=== PATIENT | female | born 1990 | race Caucasian/White ===

== ENCOUNTER 2018-05-25 23:34 | Day surgery (SDC) | payer OTHER ==
[2018-05-25 23:59] VITALS: BP 113/68; TEMP 98.4; BMI 28.1
--- NOTE | 2018-05-26 00:14 | PDOC.LDHP ---
Labor and Delivery H&P Chief complaint: other ("Dehyation") HPI: Patient of Dr Thorpe Location: L&D CC: Here for "dehydration" HPI: 28 yo with headache and states she feels dehydrated. No VB nor contrcations. Good FM. No fevers. States could not tolerate GTT 3hr twice. No diarhhea, had "indigestion". Some nausea last few days. Review of Systems: complete and as per HPI Grav: 1 Para: 0 Abnormal US findings: No Current medications: pre-shad vitamins Previous surgical history: other (gastric sleeve 2013) Allergies/Adverse Reactions: Allergies Allergy/AdvReac Type Severity Reaction Status Date / Time No Known Allergies Allergy Verified 05/25/18 23:55 - Physical Exam Vital signs reviewed and normal: yes (113/68 afebrile) General: NAD Heart: RRR Lungs: CTAB Abdomen: gravid Extremeties: no edema FHT: category 1 (reactive for EGA) - Assessment Vague complaints at 28 weeks...no diarhea reported and some nasusea after the 3 hr attempt recently. No contractions. - Plan Plan: observation in L&D (I have ordered a CMP and urine. I will hydrate with D5LR 1 liter. Offer Zofran andf malox. No sxs of gallbladder dz.)
[2018-05-26] MEDS ORDERED: Ondansetron PF 4 MG/2 ML Vial IVP SCH (00:15)
[2018-05-26] MEDS ORDERED: Mag-Al Plus 1200 MG/1200 MG/120 MG/30 ML UDCUP PO PRN (00:17)
[2018-05-26] MEDS: Dextrose 5%-Lactated Ringers 1,000 ML IV SCH ×2 (00:24→01:37)
[2018-05-26 00:55] LABS: ALT (SGPT) 11 U/L (8-55); AST (SGOT) 9 U/L (5-34); Albumin 3.3 g/dL (3.5-5.0); Alkaline Phosphatase 59 U/L (40-150); Anion Gap 12 mmol/L (10-20); BUN (Urea Nitrogen) 10 mg/dL (7.0-18.7); Bilirubin, Total 0.4 mg/dL (0.2-1.2); Calc. Creatinine Clearance 182 mL/min (70-130); Calcium 8.8 mg/dL (7.8-10.44); Carbon Dioxide 22 mmol/L (22-29); Chloride 109 mmol/L (98-107); Estimated GFR-MDRD Greater than 90; Globulin 3.5 g/dL (2.4-3.5); Glucose 82 mg/dL (70-105); Potassium 3.8 mmol/L (3.5-5.1); Protein, Total 6.8 g/dL (6.0-8.3); Sodium 139 mmol/L (136-145)
--- NOTE | 2018-05-26 01:42 | PDOC.EVN ---
Event Note - Event Note Event Note: CMP normal
[2018-05-26 04:02] LABS: Bilirubin Negative (Negative); Blood, Urine Negative (Negative); Clarity CLEAR (Clear); Glucose, Urine (Dipstick) >=1000 mg/dL (Negative); Leukocyte Moderate (Negative); Nitrite Negative (Negative); Protein, Urine (Dipstick) Negative (Neg-Trace); Specific Gravity, Urine 1.022 (1.002-1.036)
[2018-05-26 04:05] LABS: Bacteria/HPF None Seen HPF (None Seen); Hyaline Casts/LPF 4-6 HYALINE CAST LPF (0-3 Hyaline); Pathc Cast-AUWi Flag 1.59 (0-2.49); RBC/HPF 0-3 HPF (0-3); WBC/HPF 21-50 HPF (0-3)
--- NOTE | 2018-05-26 07:03 | PDOC.EVN ---
Event Note - Event Note Event Note: UA with neg ketones, the glucose in urine likely secondary to D5 administration IV. Contaminated sample due to sq cells present...no sxs of UTI. Nit negative. Cleared for discharge
== END 2018-05-26 05:00 | disposition home or self-care (01) ==
LOC: L&D/OP 23:34
PROVIDERS: ATTEND Obstetrics & Gynecology
DX: O99.283 Endocrine, nutritional and metabolic diseases complicating pregnancy, third trimester (principal); E86.0 Dehydration; O99.843 Bariatric surgery status complicating pregnancy, third trimester; Z3A.28 28 weeks gestation of pregnancy; Z79.899 Other long term (current) drug therapy
CPT/HCPCS: 80053; 81003; 81015; 96360; 96361; 99283

== ENCOUNTER 2018-06-25 11:59 | Day surgery (SDC) | payer OTHER ==
[2018-06-25 13:25] LABS: #Basophils 0.1 thou/uL (0.0-0.2); #Eosinphils 0.9 thou/uL (0.0-0.7); #Lymphocytes 1.2 thou/uL (1.20-3.40); #Monocytes 0.5 thou/uL (0.11-0.59); #Neutrophils 5.1 thou/uL (1.40-6.50); %Basophils 0.9 % (0.0-1.0); %Eosinophils 11.3 % (0.0-10.0); %Lymphocytes 15.2 % (21.0-51.0); %Monocytes 6.5 % (0.0-10.0); %Neutrophils 66.2 % (42.0-75.0); Hemoglobin 10.5 g/dL (12.0-16.0); Mean Corpuscular HGB CONC 33.4 g/dL (32.0-36.0); Mean Corpuscular Hemoglobin 30.9 pg (27.0-31.0); Mean Corpuscular Volume 92.7 fL (78.0-98.0); Mean Platelet Volume 10.4 fL (7.4-10.4); Platelet Count 167 thou/uL (130-400); RBC Distribution Width 11.4 % (11.5-14.5); White Blood Cell (WBC) Count 7.7 thou/uL (4.8-10.8)
[2018-06-25 13:27] VITALS: BMI 29.3
[2018-06-25 13:34] LABS: Amnisure Test No Membranes Rupture (No Rupture)
[2018-06-25 13:35] LABS: Amnisure Internal Control QC ACCEPTABLE (ACCEPTABLE)
[2018-06-25] MEDS ORDERED: Lactated Ringer's 300 ML IVPB SCH (16:40)
[2018-06-25] MEDS ORDERED: Lactated Ringer's 1,000 ML IV SCH (16:45)
== END 2018-06-25 16:37 | disposition home or self-care (01) ==
LOC: L&D/OP 11:59
PROVIDERS: ATTEND Obstetrics & Gynecology
DX: O99.89 Other specified diseases and conditions complicating pregnancy, childbirth and the puerperium (principal); N89.8 Other specified noninflammatory disorders of vagina; Z79.2 Long term (current) use of antibiotics; Z79.899 Other long term (current) drug therapy
CPT/HCPCS: 84112; 85025; 86644; 86696; 86698; 86762; 86777; 87081; 87480; 87510; 87660; 96360; 96361; 99284

== ENCOUNTER 2018-07-09 13:01 | Inpatient (IN) | payer OTHER ==
[2018-07-09] MEDS ORDERED: Ondansetron PF 4 MG/2 ML Vial ONE ×2 (13:16→14:50)
[2018-07-09] MEDS ORDERED: Ketorolac Tromethamine 30 MG/ML VIAL ONE ×2 (13:16→14:50)
[2018-07-09] MEDS ORDERED: Dexamethasone 20 MG/5 ML VIAL ONE (13:16)
[2018-07-09] MEDS ORDERED: PHENYLEPHRINE-NS 100 MCG/ML 10 ML SYRINGE ONE ×2 (13:16→14:50)
[2018-07-09 13:29] VITALS: BMI 29.3
[2018-07-09] MEDS: Lactated Ringer's 1,000 ML IV SCH ×2 (14:15→21:22)
[2018-07-09] MEDS ORDERED: Ondansetron PF 4 MG/2 ML Vial IVP PRN ×3 (14:21→15:03)
[2018-07-09] MEDS ORDERED: Butorphanol Tartrate 1 MG/ML VIAL SLOW IVP PRN (14:21)
[2018-07-09] MEDS ORDERED: Meperidine HCl/PF 25 MG/ML VIAL IM/IV PRN (14:21)
[2018-07-09] MEDS ORDERED: Promethazine HCl 25 MG/ML VIAL IM PRN ×3 (14:21→15:03)
[2018-07-09] MEDS ORDERED: CEFAZOLIN/Water 2 GM/20 ML SYRINGE SLOW IVP SCH (14:30)
--- NOTE | 2018-07-09 14:33 | PDOC.LDHP ---
Labor and Delivery H&P Chief complaint: other (sent from [facility] w BPP 4/8, decelerations on NST) HPI: Pt is a 28yo G1 @ 34.5 weeks w oligohydramnios, asymmetric IUGR, breech, maternal bicornuate uterus who was seen by [facility] today and sent to L and D w BPP 4 /8 and RADHA 6. Good variability noted when patient was put on NST but with one subtle 3 min decel noted followed by a 5 minute decel noted as well. Current gestational age (weeks): 34 Due date: 08/15/18 Dating criteria: first trimester ultrasound (redated at 12 weeks) Grav: 1 Para: 0 Current complications: IUGR, oligohydramnios, breech Abnormal US findings: Yes (RADHA 6cm, 7% growth and head <1%tile) Past Medical History: none Current medications: pre-shad vitamins Previous surgical history: other (gastric sleeve) Allergies/Adverse Reactions: Allergies Allergy/AdvReac Type Severity Reaction Status Date / Time No Known Allergies Allergy Verified 05/25/18 23:55 Social history: none - Physical Exam Vital signs reviewed and normal: yes General: resting Heart: RRR Lungs: CTAB Abdomen: gravid Extremeties: no edema FHT: category 2 - OB Labs Blood type: A RH: positive Antibody Screen: negative HIV: negative RPR: negative HEPSAg: negative 1 hour GCT: positive 3 hour GTT: neg Rubella: immune Additional Labs: NIPT and AFP neg, HSV 1/2 IgM pos, HSV1 IgG positive, HSV2 IgG negative, otherwise TORCH neg - Assessment L&D Assessment: scheduled primary section - Plan Plan: admit to L&D, to OR for section, informed consent obtained, anesthesia consult for pain management -: A/P: 28yo G1 @ 34.5 weeks w non reassuring status in the presence of asymmetric IUGR, oligohydramnios, BPP 4/10, and breech presentation. Had one dose of steroids 14 days ago when she was suspicious in the office for ROM but was confirmed intact. An additional dose of steriod was given yesterday with plan to repeat today, however was directed from [facility] to come to L and D after BPP was 4/10. Recommendation reviewed w [facility] for delivery now. Patient and NICU aware.
[2018-07-09] MEDS ORDERED: Bicitra 30 ML UDCUP ONE (14:35)
[2018-07-09] MEDS ORDERED: Bicitra 30 ML UDCUP PO SCH (14:45)
[2018-07-09] MEDS ORDERED: CEFAZOLIN 2 GM in Premix Bag 1 BAG IVPB SCH (14:45)
[2018-07-09] MEDS ORDERED: MORPHINE 5 MG/10 ML PF VIAL ONE (14:49)
[2018-07-09] MEDS ORDERED: Fentanyl 100 MCG/2 ML VIAL ONE (14:49)
[2018-07-09] MEDS ORDERED: Oxytocin 10 UNITS/ML VIAL ONE ×3 (14:50→15:27)
[2018-07-09] MEDS ORDERED: Promethazine HCl 25 MG SUPP PR PRN (14:52)
[2018-07-09] MEDS ORDERED: Ondansetron HCl/PF 4 MG/2 ML Vial IVP PRN (14:52)
[2018-07-09] MEDS ORDERED: Naloxone HCl 0.4 mg/ml Vial IV PRN (14:52)
[2018-07-09] MEDS ORDERED: Eucerin (Mineral Oil/Petrolatum,White) 30 gm Jar TOP PRN (14:52)
[2018-07-09] MEDS ORDERED: HYDROmorphone 2 MG/ML VIAL SLOW IVP PRN (14:52)
[2018-07-09] MEDS ORDERED: L&D-Morphine 4 MG/ML VIAL SLOW IVP PRN (14:52)
[2018-07-09] MEDS ORDERED: Naloxone HCl 0.4 mg/ml Vial IVP PRN ×2 (14:52)
[2018-07-09] MEDS ORDERED: Meperidine HCl/PF 25 MG/ML VIAL SLOW IVP PRN (14:52)
[2018-07-09] MEDS ORDERED: diphenhydrAMINE 50 MG/ML VIAL IVP PRN (14:52)
[2018-07-09 14:55] LABS: Hemoglobin 10.8 g/dL (12.0-16.0); Mean Corpuscular HGB CONC 33.4 g/dL (32.0-36.0); Mean Corpuscular Hemoglobin 30.1 pg (27.0-31.0); Mean Corpuscular Volume 90.4 fL (78.0-98.0); Mean Platelet Volume 10.4 fL (7.4-10.4); Platelet Count 197 thou/uL (130-400); RBC Distribution Width 11.3 % (11.5-14.5); Red Blood Cell (RBC) Count 3.57 mill/uL (4.20-5.40); White Blood Cell (WBC) Count 10.1 thou/uL (4.8-10.8)
[2018-07-09] MEDS ORDERED: Communication Order-Pharmacy FS SCH (15:00)
[2018-07-09] MEDS ORDERED: Ketorolac Tromethamine 30 MG/ML VIAL IVP SCH ×2 (15:00→23:30)
[2018-07-09] MEDS ORDERED: diphenhydrAMINE 25 MG CAP PO PRN (15:03)
[2018-07-09] MEDS ORDERED: Zolpidem Tartrate 5 MG TAB PO PRN (15:03)
[2018-07-09] MEDS ORDERED: Bisacodyl 10 MG SUPP PR PRN (15:03)
[2018-07-09] MEDS ORDERED: Lanolin Ointment 7 GM TUBE TOP PRN (15:03)
[2018-07-09] MEDS ORDERED: NS / Oxytocin 40 units/1000ml 1,000 ML IV SCH (15:15)
[2018-07-09 15:35] LABS: HBSAg Index 0.31 S/CO (0-0.99); Hep B Surf Ag Non-Reactive S/CO (NonReactive)
[2018-07-09 15:36] LABS: Syphilis Antibody Nonreactive (Nonreactive); Syphilis Antibody Index 0.06 S/CO (<1.00 Non-Reactive)
--- NOTE | 2018-07-09 16:00 | PDOC.OPDEL ---
OB Operative/Delivery Note Delivery Dr/Surgeon: Maurilio Assist: Katie Pre-Delivery Diagnosis: breech, medically indicated induction, other ( oligohydramnios, breech, BPP 4/10, IUGR) Weeks gestation: 34 Anesthesia: spinal - Findings A Sex: female - Additional Findings/Plan Placenta delivered: spontaneous findings: low transverse hysterotomy without extension, normal tubes, normal ovaries, other (Bicornuate/septate uterus w head and body in left horn and LE in right more rudimentary horn.) Estimated blood loss: 800ml Post delivery plan: routine recovery
[2018-07-09] MEDS ORDERED: Acetaminophen 1,000 MG in Premix Bag 1 BAG IVPB PRN (22:00)
[2018-07-09] MEDS: Ketorolac Tromethamine 30 MG/ML VIAL IVP PRN (22:21)
--- NOTE | 2018-07-09 23:17 | OP ---
DATE OF PROCEDURE: 07/09/2018 PROCEDURE PERFORMED: Primary low transverse section. CLIENT SERVICES ADMINISTRATOR: Corinne Wilson PA-C ANESTHESIA: Spinal per Dr. Lamb. COMPLICATIONS: None. ESTIMATED BLOOD LOSS: 800 mL. PREOPERATIVE DIAGNOSES: 1. 34 weeks and 5 days gestation. 2. Bicornuate/septate uterus. 3. Breech presentation. 4. Oligohydramnios. 5. Asymmetric intrauterine growth restriction. 6. Non-reassuring antepartum surveillance with a BPP 4/10 and recurrent decelerations on nonstress test. POSTOPERATIVE DIAGNOSIS: Status post primary low transverse section. FINDINGS: 1. Low transverse hysterotomy without extension. 2. Bicornuate uterus with two distinct torn and a thick intrauterine septum. 3. On palpation prior to delivery, the infant's head and upper body were in the left uterine horn and the 's lower extremities were in the rudimentary right uterine horn. 4. Normal-appearing fallopian tubes and ovaries bilaterally. 5. Uterus firm after delivery of placenta. 6. Small growth restricted appearing with vigorous cry noted at . Apgars and weight pending at the time of this dictation. Asymmetric head molding noted. DESCRIPTION OF PROCEDURE: The patient was taken back to the OR with IV fluids running. When she was in the OR, spinal anesthesia was obtained. The patient was then placed in dorsal supine position with a left lateral tilt. Cooley catheter was placed using sterile technique. SCDs were placed on the lower extremities. A 2 g of Ancef were infused through the patient's IV. The abdomen was prepped and draped in normal fashion for section. Surgeons were gowned and gloved and the anesthesia was tested and found to be adequate. A Pfannenstiel skin incision was made with a scalpel. Skin incision carried out to the subcutaneous tissue to the fascia. Once the fascia was reached, it was incised in the midline and extended superolaterally using curved Gordon scissors. Marine clamps were placed at the superior border of the fascia and sharply and bluntly dissected off the rectus abdominis muscle. This was repeated at the inferior border of the fascia down toward the pubic symphysis. Rectus muscles were in the midline bluntly. The peritoneum was bluntly entered and stretched laterally. An Farrukh O retractor was placed into the peritoneal cavity for retraction, visualization, and protection of the wound. The lower uterine segment was well developed and the breech was palpated at the lower uterine segment. The head was palpated in the left uterine horn in the lower extremities to the much smaller right uterine horn. A low transverse hysterotomy was made with a scalpel after bladder flap was created. The hysterotomy was bluntly stretched using the Jurado maneuver. Clear fluid was noted upon entry and the infant's buttock and lower extremities were palpable through the hysterotomy. With gentle fundal pressure, ASIS were grasped and brought down through the hysterotomy. The leg spontaneously delivered. With gentle rotation, the left and right upper extremities and the head spontaneously delivered through the hysterotomy. The infant was noted to have immediate cry. She was dried. Her nose and mouth were suctioned. The cord was doubly clamped and cut. The was handed off to the NICU who was present for delivery. Cord blood was collected. The placenta was delivered. Uterus was exteriorized and massaged to firm, and cleared of clot and debris. A thick intrauterine septum was noted dividing the right and left uterine horns. Both uterine horns were noted to be firm. The hysterotomy was closed in a running locked fashion using Monocryl suture. A second imbricating layer was used to close the hysterotomy in 2 layers. After the hysterotomy was closed, it was irrigated as well as the paracolic gutters. The irrigation fluid was suctioned dry. The hysterotomy was inspected again and noted to be hemostatic. Counts were correct. The Farrukh retractor was removed from the abdominal cavity. The muscle belly and fascia were inspected with no bleeding noted. The fascia was then reapproximated from corner to corner and tied separately in the midline with PDS suture. Subcutaneous tissue was then irrigated and dried. Any small areas of bleeding were controlled with Bovie cauterization. The subcutaneous tissue was reapproximated with a series of interrupted plain gut suture. Skin was closed with 4-0 Monocryl and dressed with Dermabond dressing. The patient was then clean, dry, and taken to the recovery room in good condition. Job ID: [id number]
[2018-07-09] MEDS: Docusate Calcium (SURFAK) 240 MG CAP PO SCH (23:22)
[2018-07-09] MEDS: Ferrous Sulfate 325 MG TAB PO SCH (23:22)
[2018-07-10] MEDS ORDERED: Meperidine HCl/PF 25 MG/ML VIAL IM/IV PRN (03:00)
[2018-07-10] MEDS: Ketorolac Tromethamine 30 MG/ML VIAL IVP PRN (06:25)
[2018-07-10 07:01] LABS: Hemoglobin 8.8 g/dL (12.0-16.0); Mean Corpuscular Hemoglobin 30.5 pg (27.0-31.0); Mean Corpuscular Volume 92.4 fL (78.0-98.0); Mean Platelet Volume 10.7 fL (7.4-10.4); Platelet Count 155 thou/uL (130-400); RBC Distribution Width 11.4 % (11.5-14.5); Red Blood Cell (RBC) Count 2.88 mill/uL (4.20-5.40); White Blood Cell (WBC) Count 10.5 thou/uL (4.8-10.8)
[2018-07-10] MEDS: Lactated Ringer's 1,000 ML IV SCH ×2 (07:40→14:17)
[2018-07-10] MEDS: Ferrous Sulfate 325 MG TAB PO SCH ×2 (08:51→21:53)
[2018-07-10] MEDS: Prenatal Vitamin 1 TAB PO SCH (08:51)
[2018-07-10] MEDS: Docusate Calcium (SURFAK) 240 MG CAP PO SCH ×2 (08:51→21:53)
--- NOTE | 2018-07-10 08:52 | PDOC.PP ---
Post Progress Note Post Day #: 1 Subjective: doing well, just returned from visiting baby in NICU, pain controlled, javier diet PO intake tolerated: yes Flatus: yes Ambulation: yes Vital Signs (12 hours) Temp Pulse Resp BP Pulse Ox 07/10/18 08:20 98.1 F 64 20 109/70 98 07/10/18 03:45 97.7 F 74 18 102/63 97 07/10/18 00:25 97.8 F 74 18 108/68 99 07/09/18 22:18 98.4 F 75 18 116/72 98 07/09/18 21:00 97.8 F 78 18 120/79 99 Weight Weight 193 lb - Physical Examination General: NAD Respiratory: non-labored breathing Abdominal: no distention Skin: CS incision dry & intact, no rash Neurological: no gross focal deficits Psychiatric: A&Ox3, normal affect Result Diagrams: 07/10/18 06:36 Additional Labs: Post Labs Blood Type A POSITIVE 07/09/18 14:29 Hep Bs Antigen Non-Reactive S/CO (NonReactive) 07/09/18 14:29 - Assessment/Plan POD1 sp 1CS for breech/oligo/IUGR/nonreassuring antepartum surveillance. Meeting post op goals. Continue PP care.
[2018-07-10] MEDS ORDERED: Adacel (T-DAP) 0.5 ML SYRINGE IM ONE (09:00)
[2018-07-10] MEDS: Ibuprofen 800 MG TAB PO SCH ×2 (13:34→21:53)
[2018-07-10] MEDS: HYDROcodone/Acetaminophen 5/325 mg Tablet PO PRN ×2 (18:08→22:27)
[2018-07-11] MEDS: Lactated Ringer's 1,000 ML IV SCH ×3 (00:05→08:19)
[2018-07-11] MEDS: HYDROcodone/Acetaminophen 5/325 mg Tablet PO PRN ×5 (04:05→20:46)
[2018-07-11] MEDS: Ibuprofen 800 MG TAB PO SCH ×3 (06:01→20:47)
[2018-07-11] MEDS: Docusate Calcium (SURFAK) 240 MG CAP PO SCH ×2 (08:16→20:47)
[2018-07-11] MEDS: Simethicone Chewable 80 MG TAB PO PRN ×2 (08:16→16:51)
[2018-07-11] MEDS: Prenatal Vitamin 1 TAB PO SCH (08:16)
[2018-07-11] MEDS: Ferrous Sulfate 325 MG TAB PO SCH ×2 (08:16→20:47)
[2018-07-11] MEDS ORDERED: Calcium Carbonate 500 MG ChewTAB PO PRN ×2 (09:49)
[2018-07-11] MEDS: guaiFENesin 200 MG TAB PO PRN ×2 (11:56→17:56)
--- NOTE | 2018-07-11 12:35 | PDOC.PP ---
Post Progress Note Post Day #: 2 Subjective: Doing well, min discomfort, only concerns are GERD and slight cough, tolerating regular diet and ambulating well. PO intake tolerated: yes Flatus: yes Ambulation: yes Vital Signs (12 hours) Temp Pulse Resp BP Pulse Ox 07/11/18 11:42 98.1 F 95 20 113/63 07/11/18 08:04 98.1 F 78 20 111/67 99 07/11/18 04:05 97.6 F 73 18 105/64 Weight Weight 193 lb - Physical Examination General: NAD Respiratory: non-labored breathing Abdominal: no distention Fundus firm & at: below umb Skin: CS incision dry & intact, no rash Neurological: no gross focal deficits Psychiatric: A&Ox3, normal affect Result Diagrams: 07/10/18 06:36 Additional Labs: Post Labs Blood Type A POSITIVE 07/09/18 14:29 Hep Bs Antigen Non-Reactive S/CO (NonReactive) 07/09/18 14:29 (1) delivery delivered Code(s): O82 - ENCOUNTER FOR DELIVERY WITHOUT INDICATION Status: Acute (2) Oligohydramnios delivered Code(s): O41.00X0 - OLIGOHYDRAMNIOS, UNSP TRIMESTER, NOT APPLICABLE OR UNSP Status: Acute (3) Breech presentation Code(s): O32.1XX0 - MATERNAL CARE FOR BREECH PRESENTATION, UNSP Status: Acute (4) Non-reassuring status, delivered, current hospitalization Code(s): O75.89 - OTHER SPECIFIED COMPLICATIONS OF LABOR AND DELIVERY Status: Acute (5) IUGR (intrauterine growth restriction) Status: Acute (6) Bicornuate uterus Code(s): Q51.3 - BICORNATE UTERUS Status: Acute - Assessment/Plan POD 2 sp 1CS for nonreassuring status @ 34.5 weeks in breech presentation with known uterine anomaly, IUGR and oligohydramnios. Doing well, continue PP care.
--- NOTE | 2018-07-12 00:33 | PDOC.PP ---
Post Progress Note Post Day #: POD#3 Subjective: in NICU. No c/o. PO intake tolerated: yes Flatus: yes Ambulation: yes Vital Signs (12 hours) Temp Pulse Resp BP Pulse Ox 07/11/18 20:00 99 07/11/18 16:54 98.4 F 99 18 118/65 Weight Weight 87.543 kg - Physical Examination General: NAD Neurological: no gross focal deficits Psychiatric: normal affect Result Diagrams: 07/10/18 06:36 Additional Labs: Post Labs Blood Type A POSITIVE 07/09/18 14:29 Hep Bs Antigen Non-Reactive S/CO (NonReactive) 07/09/18 14:29 - Assessment/Plan Doing well. Routine care. DC home in AM per Dr. Thorpe.
[2018-07-12] MEDS: HYDROcodone/Acetaminophen 5/325 mg Tablet PO PRN ×5 (01:39→20:26)
[2018-07-12] MEDS: Lactated Ringer's 1,000 ML IV SCH ×3 (01:41→16:53)
[2018-07-12] MEDS: Ibuprofen 800 MG TAB PO SCH ×3 (04:24→20:27)
[2018-07-12] MEDS: guaiFENesin 200 MG TAB PO PRN (04:24)
[2018-07-12] MEDS: Prenatal Vitamin 1 TAB PO SCH (09:09)
[2018-07-12] MEDS: Docusate Calcium (SURFAK) 240 MG CAP PO SCH ×2 (09:09→20:26)
[2018-07-12] MEDS: Ferrous Sulfate 325 MG TAB PO SCH ×2 (09:09→22:21)
--- NOTE | 2018-07-12 10:20 | PDOC.EVN ---
Event Note - Event Note Event Note: Patient with SANTANA, cough, 100 degree temp overnight. Respiratory panel sent and pending. Rapid flu positive for Flu A.
[2018-07-12] MEDS ORDERED: Oseltamivir 75 MG CAP PO SCH (10:30)
[2018-07-12] MEDS: Dextromethorphan Polistirex 30 MG/5 ML (89 ML BOTTLE) PO SCH ×2 (11:59→17:37)
[2018-07-12] MEDS: Oseltamivir 75 MG CAP PO SCH ×3 (20:26→22:23)
--- NOTE | 2018-07-12 20:43 | PDOC.EVN ---
Event Note - Event Note Event Note: Pt Influenza A positive. Pt has had some episodes of tachycardia earlier in the afternoon in the 120's. Pt has been drinking PO fluids. Pt pulse now 99. Advised to continue to drink fluids as much as possible. Pt reports still feeling ill. Advised to rest overnight. Pt reports dextromorphan helping with cough. Will continue with current medication regimen.
[2018-07-13] MEDS: Dextromethorphan Polistirex 30 MG/5 ML (89 ML BOTTLE) PO SCH ×5 (02:10→22:38)
[2018-07-13] MEDS: HYDROcodone/Acetaminophen 5/325 mg Tablet PO PRN ×5 (02:14→22:38)
[2018-07-13] MEDS: Ibuprofen 800 MG TAB PO SCH ×3 (06:33→22:39)
[2018-07-13] MEDS: Lactated Ringer's 1,000 ML IV SCH ×2 (06:46→14:26)
--- NOTE | 2018-07-13 07:25 | PDOC.PP ---
Post Progress Note Post Day #: 4 Subjective: 28yo F who delivered @ 34.5 weeks via 1CS due to oligo, NRFHT, and breech presentation. Pt recently dx with Flu A yesterday by swab and respiratory panel. Pt reports feeling genalized body aches this morning. Reports getting SOB when walking form the NICU. Pt reports having a hard time getting up and moving. Pt reports fever and chills. PO intake tolerated: yes (Drinking small sips fluids. Has hard time drinking large amounts) Flatus: yes Ambulation: yes Vital Signs (12 hours) Pulse Ox 07/12/18 20:00 97 Weight Weight 87.543 kg Pulse 110 and o2 94% when I check bedside at 7:00 - Physical Examination Deviation from normal: Pt ill appearing, Appears tired. Cardiovascular: no m/r/g, RRR Deviation from normal: Some upper airway rales noted on auscultation bilaterally Abdominal: + bowel sounds, lochia (Reports lochia as light), no distention, appropriately TTP Fundus firm & at: below umbilicus Extremities: negative homans (B) Skin: CS incision dry & intact, no rash Deviation from normal: No sign redness or drainage Neurological: no gross focal deficits Psychiatric: A&Ox3, normal affect Result Diagrams: 07/10/18 06:36 Additional Labs: Post Labs Blood Type A POSITIVE 07/09/18 14:29 Hep Bs Antigen Non-Reactive S/CO (NonReactive) 07/09/18 14:29 Flu Swab: Flu A positive. Respitory Panel Influenza A H1 + (1) Influenza A (H1N1) Code(s): J10.1 - FLU DUE TO OTH IDENT INFLUENZA VIRUS W OTH RESP MANIFEST Status: Acute (2) Breech presentation Code(s): O32.1XX0 - MATERNAL CARE FOR BREECH PRESENTATION, UNSP Status: Acute (3) delivery delivered Code(s): O82 - ENCOUNTER FOR DELIVERY WITHOUT INDICATION Status: Acute (4) IUGR (intrauterine growth restriction) Status: Acute (5) Oligohydramnios delivered Code(s): O41.00X0 - OLIGOHYDRAMNIOS, UNSP TRIMESTER, NOT APPLICABLE OR UNSP Status: Acute - Assessment/Plan POD 4 sp 1CS for nonreassuring status @ 34.5 weeks in breech presentation with known uterine anomaly, IUGR and oligohydramnios. Influenza A + on swab and Resp Panel Pt started getting fever and cough yesterday morning. -Started on Tamiflu 75mg BID. -Guanefesin and Dextromorphan for cough. -Pt feeling ill. Pt not able to drink lots of fluids due to past gastric surgery. Pulse elevated some yesterday and again this morning. Will give LR bolus at this time. -Will keep pt one more day for supportive care as she is having difficulty getting up and moving around. POD 4 Primary -Pain controlled with medications at time. -Pain being made worse due to above illness. continue supportive care. -will continue to monitor for another day. -Incision healing well at this time.
[2018-07-13] MEDS ORDERED: Lactated Ringer's 1,000 ML IV SCH (07:30)
[2018-07-13] MEDS: Prenatal Vitamin 1 TAB PO SCH (07:55)
[2018-07-13] MEDS: Docusate Calcium (SURFAK) 240 MG CAP PO SCH ×2 (07:55→22:39)
[2018-07-13] MEDS: Oseltamivir 75 MG CAP PO SCH ×2 (07:56→22:40)
[2018-07-13] MEDS: Ferrous Sulfate 325 MG TAB PO SCH ×2 (07:56→22:39)
[2018-07-13] MEDS: guaiFENesin 200 MG TAB PO PRN (07:57)
--- NOTE | 2018-07-13 10:41 | PDOC.EVN ---
Event Note - Event Note Event Note: Bed Check: Vitals reviewed Stable tamiflu day 2 In Shower, awaiting IVF bolus Also HX gastric Sleeve
--- NOTE | 2018-07-13 23:04 | PDOC.EVN ---
Event Note - Event Note Event Note: Temp check: afebrile
[2018-07-14] MEDS: HYDROcodone/Acetaminophen 5/325 mg Tablet PO PRN ×3 (05:58→18:51)
[2018-07-14] MEDS: Ibuprofen 800 MG TAB PO SCH ×3 (05:59→20:52)
[2018-07-14] MEDS: Lactated Ringer's 1,000 ML IV SCH ×2 (07:23→14:10)
[2018-07-14] MEDS: Dextromethorphan Polistirex 30 MG/5 ML (89 ML BOTTLE) PO SCH ×5 (07:25→23:58)
--- NOTE | 2018-07-14 08:24 | PDOC.PP ---
Post Progress Note Post Day #: 5 Subjective: doing well, coughing but not fever or chills, min lochia, pumping PO intake tolerated: yes Flatus: yes Ambulation: yes Vital Signs (12 hours) Temp Pulse Resp BP Pulse Ox 07/13/18 21:00 98.3 F 85 18 107/63 97 Weight Weight 193 lb - Physical Examination General: NAD Respiratory: non-labored breathing Abdominal: no distention Skin: CS incision dry & intact Psychiatric: A&Ox3, normal affect Result Diagrams: 07/10/18 06:36 Additional Labs: Post Labs Blood Type A POSITIVE 07/09/18 14:29 Hep Bs Antigen Non-Reactive S/CO (NonReactive) 07/09/18 14:29 (1) delivery delivered Code(s): O82 - ENCOUNTER FOR DELIVERY WITHOUT INDICATION Status: Acute (2) Oligohydramnios delivered Code(s): O41.00X0 - OLIGOHYDRAMNIOS, UNSP TRIMESTER, NOT APPLICABLE OR UNSP Status: Acute (3) Breech presentation Code(s): O32.1XX0 - MATERNAL CARE FOR BREECH PRESENTATION, UNSP Status: Acute (4) Non-reassuring status, delivered, current hospitalization Code(s): O75.89 - OTHER SPECIFIED COMPLICATIONS OF LABOR AND DELIVERY Status: Acute (5) IUGR (intrauterine growth restriction) Status: Acute (6) Bicornuate uterus Code(s): Q51.3 - BICORNATE UTERUS Status: Acute (7) Influenza A (H1N1) Code(s): J10.1 - FLU DUE TO OTH IDENT INFLUENZA VIRUS W OTH RESP MANIFEST Status: Acute - Assessment/Plan A/P: POD 5, prolonged care PP due to influenza + on POD3, on tamiflu. Possible DC vs B and B.
[2018-07-14] MEDS: Ferrous Sulfate 325 MG TAB PO SCH ×2 (08:37→20:52)
[2018-07-14] MEDS: Prenatal Vitamin 1 TAB PO SCH (08:37)
[2018-07-14] MEDS: Oseltamivir 75 MG CAP PO SCH ×2 (08:37→20:53)
[2018-07-14] MEDS: Docusate Calcium (SURFAK) 240 MG CAP PO SCH ×2 (08:37→20:53)
[2018-07-14] MEDS: guaiFENesin 200 MG TAB PO PRN (19:04)
[2018-07-15] MEDS: Lactated Ringer's 1,000 ML IV SCH (00:27)
[2018-07-15] MEDS: Dextromethorphan Polistirex 30 MG/5 ML (89 ML BOTTLE) PO SCH ×2 (05:09→12:42)
[2018-07-15] MEDS: HYDROcodone/Acetaminophen 5/325 mg Tablet PO PRN ×3 (05:09→16:34)
[2018-07-15] MEDS: Ibuprofen 800 MG TAB PO SCH ×2 (05:09→13:48)
[2018-07-15 09:00] VITALS: BP 109/61; TEMP 98.1
[2018-07-15] MEDS: Oseltamivir 75 MG CAP PO SCH (09:03)
[2018-07-15] MEDS: Ferrous Sulfate 325 MG TAB PO SCH (09:03)
[2018-07-15] MEDS: Prenatal Vitamin 1 TAB PO SCH (09:03)
[2018-07-15] MEDS: Docusate Calcium (SURFAK) 240 MG CAP PO SCH (09:03)
--- NOTE | 2018-07-15 15:33 | PDOC.PP ---
Post Progress Note Post Day #: 6 Subjective: doing well, min cough, no fever or chills, no SOB PO intake tolerated: yes Flatus: yes Ambulation: yes Vital Signs (12 hours) Temp Pulse Resp BP Pulse Ox 07/15/18 08:58 98.1 F 64 16 109/61 93 L 07/15/18 08:50 93 L 07/15/18 05:10 98.0 F Weight Weight 193 lb - Physical Examination General: NAD Respiratory: non-labored breathing Abdominal: no distention Skin: CS incision dry & intact Psychiatric: A&Ox3, normal affect Result Diagrams: 07/10/18 06:36 Additional Labs: Post Labs Blood Type A POSITIVE 07/09/18 14:29 Hep Bs Antigen Non-Reactive S/CO (NonReactive) 07/09/18 14:29 (1) delivery delivered Code(s): O82 - ENCOUNTER FOR DELIVERY WITHOUT INDICATION Status: Acute (2) Oligohydramnios delivered Code(s): O41.00X0 - OLIGOHYDRAMNIOS, UNSP TRIMESTER, NOT APPLICABLE OR UNSP Status: Acute (3) Breech presentation Code(s): O32.1XX0 - MATERNAL CARE FOR BREECH PRESENTATION, UNSP Status: Acute (4) Non-reassuring status, delivered, current hospitalization Code(s): O75.89 - OTHER SPECIFIED COMPLICATIONS OF LABOR AND DELIVERY Status: Acute (5) IUGR (intrauterine growth restriction) Status: Acute (6) Bicornuate uterus Code(s): Q51.3 - BICORNATE UTERUS Status: Acute (7) Influenza A (H1N1) Code(s): J10.1 - FLU DUE TO OTH IDENT INFLUENZA VIRUS W OTH RESP MANIFEST Status: Acute - Assessment/Plan A/p: POD6 sp 1CS complicated PP by influenza A. Plan for DC today, will complete tamiflu tomorrow, rx called out. FU office one week.
== END 2018-07-15 16:45 | disposition home or self-care (01) | DRG 787 ==
LOC: L&D/OP 13:01 → L&D 14:59 → 3SW 19:07
PROVIDERS: ADMIT Obstetrics & Gynecology; ATTEND Obstetrics & Gynecology
PROC: 10D00Z1 Extraction of Products of Conception, Low, Open Approach (ICD-10-PCS; principal; 2018-07-09)
DX: O76 Abnormality in fetal heart rate and rhythm complicating labor and delivery (principal); O41.03X0 Oligohydramnios, third trimester, not applicable or unspecified; O36.5930 Maternal care for other known or suspected poor fetal growth, third trimester, not applicable or unspecified; O32.1XX0 Maternal care for breech presentation, not applicable or unspecified; O34.03 Maternal care for unspecified congenital malformation of uterus, third trimester; J10.1 Influenza due to other identified influenza virus with other respiratory manifestations; O99.53 Diseases of the respiratory system complicating the puerperium; Q51.3 Bicornate uterus; Z3A.34 34 weeks gestation of pregnancy; Z98.84 Bariatric surgery status; Z37.0 Single live birth
CPT/HCPCS: 36415; 51702; 85027; 86780; 86850; 86900; 86901; 87340; 87633; 87804; 88307; 99285; J0131; J1100; J1200; J1885; J2270; J2405; J2590; J3010; Q0163

== ENCOUNTER 2018-12-15 21:49 | Inpatient (IN) | payer OTHER, SELFPAY ==
[2018-12-15 23:06] LABS: #Basophils 0.1 thou/uL (0.0-0.2); #Eosinphils 0.2 thou/uL (0.0-0.7); #Lymphocytes 2.2 thou/uL (1.20-3.40); %Basophils 0.8 % (0.0-1.0); %Eosinophils 2.1 % (0.0-10.0); %Lymphocytes 23.3 % (21.0-51.0); %Monocytes 10.1 % (0.0-10.0); %Neutrophils 63.7 % (42.0-75.0); Hemoglobin 11.7 g/dL (12.0-16.0); Mean Corpuscular HGB CONC 31.2 g/dL (32.0-36.0); Mean Corpuscular Hemoglobin 25.9 pg (27.0-31.0); Mean Corpuscular Volume 83.2 fL (78.0-98.0); Mean Platelet Volume 9.2 fL (7.4-10.4); Platelet Count 348 thou/uL (130-400); RBC Distribution Width 13.2 % (11.5-14.5); White Blood Cell (WBC) Count 9.4 thou/uL (4.8-10.8)
--- NOTE | 2018-12-15 23:06 | RAD ---
EXAM: 2 view chest INDICATIONS: Pneumonia COMPARISON: 2013 FINDINGS: Bibasilar infiltrates/consolidation more pronounced on the left. Heart and mediastinum unre markable. IMPRESSION: Bibasilar infiltrates with consolidation more prominent in the left lung base.
[2018-12-15 23:29] LABS: ALT (SGPT) 7 U/L (8-55); AST (SGOT) 9 U/L (5-34); Albumin 3.7 g/dL (3.5-5.0); Alkaline Phosphatase 71 U/L (40-150); Anion Gap 12 mmol/L (10-20); BUN (Urea Nitrogen) 18 mg/dL (7.0-18.7); Bilirubin, Total 0.5 mg/dL (0.2-1.2); Calc. Creatinine Clearance 0 mL/min (70-130); Calcium 9.5 mg/dL (7.8-10.44); Carbon Dioxide 28 mmol/L (22-29); Chloride 102 mmol/L (98-107); Estimated GFR-MDRD 74; Glucose 107 mg/dL (70-105); Protein, Total 7.7 g/dL (6.0-8.3); Sodium 138 mmol/L (136-145)
[2018-12-16] MEDS ORDERED: cefTRIAXone\\ROCEPHIN 1 GM VIAL ONE (01:13)
[2018-12-16] MEDS ORDERED: Azithromycin 500 MG VIAL ONE (02:02)
[2018-12-16 03:07] VITALS: BMI 26.1
[2018-12-16] MEDS: Sodium Chloride 0.9% 1,000 ML IV SCH ×2 (03:34→08:37)
[2018-12-16] MEDS ORDERED: Acetaminophen 500 MG TAB PO PRN (15:51)
[2018-12-16] MEDS ORDERED: Acetaminophen 325 MG TAB PO PRN (16:21)
[2018-12-16] MEDS ORDERED: Senokot S 8.6-50 MG TAB PO PRN (16:21)
[2018-12-16] MEDS ORDERED: Guaifenesin DM 100-10/5 ML UDCUP PO PRN (16:21)
[2018-12-16] MEDS ORDERED: Calcium Carbonate 500 MG ChewTAB PO PRN (16:21)
--- NOTE | 2018-12-16 17:08 | HP ---
REASON FOR ADMISSION: Possible pneumonia. HISTORY OF PRESENTING ILLNESS: The patient gives history of having been diagnosed with pneumonia like 10 days back. She was on doxycycline for a period of 10 days with no relief. She has dry hacking cough with occasional expectoration of yellow sputum. She had 1 to 2 times temperatures of 100, but mostly normal. The patient in October fell on her right chest. She had gone to see a chiropractor for her severe persistent pain. He apparently fixed her ribs and it is unclear if she had a fracture, which she does not recollect. Currently, has some left lower chest pain on deep inspiration. PAST MEDICAL AND SURGICAL HISTORY: 1. A prior history of thoracentesis done on the right side for suspected empyema and staph bacteremia in 2012, this was in [facility]. 2. x1. 3. History of gastric sleeve surgery. The patient was weighing 270 pounds before and had come down to 130 pounds before gaining weight with . CURRENT MEDICATIONS: She is just finished a course of doxycycline. ALLERGIES: NO KNOWN DRUG ALLERGIES. PERSONAL HISTORY: Does not abuse alcohol or drugs. No history of smoking. FAMILY HISTORY: Both parents are apparently healthy as far she knows. REVIEW OF SYSTEMS: CONSTITUTIONAL: Negative for weight loss or gain, ability to conduct usual activities. SKIN: Negative for rash, itching. EYES: Negative for double vision, pain. ENT/MOUTH: Negative for nose bleeding, neck stiffness, pain, tenderness. CARDIOVASCULAR: Negative for palpitations, dyspnea on exertion, orthopnea. RESPIRATORY: Negative for shortness of breath, wheezing, cough, hemoptysis, fever or night sweats. GASTROINTESTINAL: Negative for poor appetite, abdominal pain, heartburn, nausea, vomiting, constipation, or diarrhea. GENITOURINARY: Negative for urgency, frequency, dysuria, nocturia. MUSCULOSKELETAL: Negative for pain, swelling. NEUROLOGIC/PSYCHIATRIC: Negative for anxiety, depression. ALLERGY/IMMUNOLOGIC: Negative for skin rash, bleeding tendency. PHYSICAL EXAMINATION: GENERAL: The patient is a 28-year-old female, who is currently not in any acute distress. VITAL SIGNS: Blood pressure 106/66, pulse 84 per minute, respiratory rate 16 per minute, temperature 98.5 degrees Fahrenheit, and saturating 96% on room air. NECK: Supple. No elevated JVD. HEENT: Eyes; extraocular muscles intact. Pupils reacting to light. Oral cavity, mucous membranes are moist. Mild congestion in the posterior pharynx. No exudates. CARDIOVASCULAR SYSTEM: S1 and S2 heard. Regular rhythm. RESPIRATORY SYSTEM: Air entry 1+ bilateral. Scattered rhonchi plus no rales. ABDOMEN: Soft. Bowel sounds heard. No tenderness, rigidity, or guarding. EXTREMITIES: No peripheral edema or calf tenderness. VASCULAR SYSTEM: Peripheral pulses 1+ bilateral. No ischemic ulcerations or gangrene. CENTRAL NERVOUS SYSTEM: No gross focal deficits noted. The patient is alert, awake, and oriented well. PSYCHIATRIC SYSTEM: The patient's mood is euthymic. No hallucinations or delusions. LABORATORY DATA: Chest x-ray done, shows bibasilar infiltrates. She also has some left lower lobe questionable dense shadow on the plain x-ray. White count of 9, hemoglobin and hematocrit 11 and 37, MCV is 83 with platelet count of 348 and 63% neutrophils. Electrolytes are stable. BUN 18, creatinine 0.8, serum glucose 107. Liver enzymes within normal limits. Albumin 3.7. CLINICAL IMPRESSION AND PLAN: The patient will be admitted to medical floor for suspected pneumonia. We will obtain a CT chest without contrast to better delineate her infiltrate. She also had a history of recent fall with manipulation done by chiropractor for suspected right-sided rib fracture. The patient states she does not have right-sided chest pain now, but in fact has left lower chest pain with deep breathing/pleurisy. She will be on albuterol nebulizer q.6 hourly along with Zithromax and ceftriaxone. We will also consult Dr. Faulkner in view of patient's prior history of Staph bacteremia with thoracentesis done on the right with current suspected pneumonia, which has not resolved with outpatient antibiotics. Her clinical presentation is more in favor of viral infection. We will obtain a viral PCR. We will also place her on Motrin 400 mg p.o. three times daily for pain. Job ID: [id number]
[2018-12-16] MEDS: Albuterol Sulfate 2.5 mg/3 ml Neb NEB SCH ×2 (19:28→23:55)
[2018-12-16] MEDS: Ibuprofen 200 MG TAB PO SCH (20:39)
[2018-12-16] MEDS: Famotidine 20 MG TAB PO SCH (20:40)
[2018-12-17] MEDS: cefTRIAXone\\ROCEPHIN 1 GM in Sodium Chloride 0.9% 100 ML IVPB SCH (01:04)
[2018-12-17] MEDS: Azithromycin 500 MG in Sodium Chloride 0.9% 250 ML 250 ML IVPB SCH (02:14)
[2018-12-17] MEDS: traMADol HCl 50 MG TAB PO PRN ×2 (03:01→07:01)
[2018-12-17 06:38] LABS: #Basophils 0.1 thou/uL (0.0-0.2); #Eosinphils 0.2 thou/uL (0.0-0.7); #Lymphocytes 1.9 thou/uL (1.20-3.40); #Monocytes 1.3 thou/uL (0.11-0.59); %Basophils 0.7 % (0.0-1.0); %Eosinophils 1.6 % (0.0-10.0); %Lymphocytes 20.5 % (21.0-51.0); %Monocytes 13.9 % (0.0-10.0); %Neutrophils 63.3 % (42.0-75.0); Hemoglobin 10.2 g/dL (12.0-16.0); Mean Corpuscular HGB CONC 30.7 g/dL (32.0-36.0); Mean Corpuscular Hemoglobin 25.5 pg (27.0-31.0); Mean Corpuscular Volume 83.2 fL (78.0-98.0); Mean Platelet Volume 9.6 fL (7.4-10.4); Platelet Count 291 thou/uL (130-400); Red Blood Cell (RBC) Count 4.01 mill/uL (4.20-5.40); White Blood Cell (WBC) Count 9.5 thou/uL (4.8-10.8)
[2018-12-17 06:55] LABS: Anion Gap 10 mmol/L (10-20); BUN (Urea Nitrogen) 7 mg/dL (7.0-18.7); Calc. Creatinine Clearance 147 mL/min (70-130); Calcium 8.6 mg/dL (7.8-10.44); Carbon Dioxide 24 mmol/L (22-29); Chloride 104 mmol/L (98-107); Estimated GFR-MDRD Greater than 90; Glucose 106 mg/dL (70-105); Potassium 3.8 mmol/L (3.5-5.1); Sodium 134 mmol/L (136-145)
[2018-12-17] MEDS: Albuterol Sulfate 2.5 mg/3 ml Neb NEB SCH ×3 (07:03→19:09)
--- NOTE | 2018-12-17 07:44 | CT ---
EXAM: CT of the chest without contrast HISTORY: Pneumonia with difficulty breathing. COMPARISON: None TECHNIQUE: Multiple contiguous axial images were obtained in a CT the chest without contrast. Coronal reformats were performed. FINDINGS: HEART: Normal in size without focal cardiac abnormality MEDIASTINUM: No hilar or mediastinal lymphadenopathy. Evaluation of the mediastinum is limited withou t IV contrast. LUNGS: There is consolidation in both lower lobes, left greater than right. There appears to be a sma ll adjacent left pleural effusion. PLEURAL SPACE: No pneumothorax or pleural effusion. CHEST WALL SOFT TISSUES: Unremarkable OSSEOUS STRUCTURES: Unremarkable VISUALIZED SUBDIAPHRAGMATIC STRUCTURES: Unremarkable IMPRESSION: Bilateral lower lobe infiltrates
[2018-12-17] MEDS: Famotidine 20 MG TAB PO SCH ×2 (08:53→20:16)
[2018-12-17] MEDS: Ibuprofen 200 MG TAB PO SCH ×3 (08:53→20:16)
[2018-12-17] MEDS: Enoxaparin Sodium 40 MG/0.4 ML SYRINGE SC SCH (08:54)
[2018-12-17] MEDS ORDERED: predniSONE 20 MG TAB PO SCH (09:00)
--- NOTE | 2018-12-17 13:18 | PRG ---
DATE OF SERVICE: 12/17/2018 SUBJECTIVE: The patient is seen and examined at the bedside. She is complaining about some fever and sweating. She still has quite a bit of cough especially with deep breathing. OBJECTIVE: VITAL SIGNS: Blood pressure is 124/76; pulse is 114; respirations 24; O2 saturation is 96% on room air; temperature is 98.3, maximal temperature is 98.5. HEENT: Head is atraumatic and normocephalic. Eyes are PERRLA. Sclerae are nonicteric. Oral mucosa is moist. NECK: Supple. LUNGS: Showing bilateral crackles at both bases with some bilateral wheezes at both bases. Decreased breath sounds at both bases. HEART: S1, S2. Tachycardic. No S3. No S4. ABDOMEN: Soft, nontender. Bowel sounds are present. No organomegaly. EXTREMITIES: No clubbing, cyanosis, or edema. NEUROLOGIC: She is alert and oriented x4. There is no any motor or sensory deficits present. Cranial nerves are intact. LABORATORY DATA: Labs showed white count of 9.5, hemoglobin 10.2, hematocrit 33.4, platelet count is 291,000. Sodium of 134, potassium 3.8, chloride 104, CO2 of 24, BUN 11, creatinine of 0.69, glucose 106, calcium 8.6. Microbiology; respiratory virus panel negative. Nose and throat swab showed few normal skin pernell. Two blood cultures within normal limits. CT of the chest showed bilateral lower lobe infiltrates. IMPRESSION: Bilateral pneumonia. The patient was seen by Dr. Faulkner who added steroids to the regimen. She is going to continue her IV antibiotics, which is azithromycin and Rocephin. Continue NSAIDs for fever. We will continue deep venous thrombosis prophylaxis. Job ID: [id number]
--- NOTE | 2018-12-17 21:32 | CON ---
DATE OF CONSULTATION: 12/17/2018 SERVICE: Pulmonary Medicine. REASON FOR CONSULT: Non-resolving pneumonia. HISTORY OF PRESENT ILLNESS: The patient is a 28-year-old white female with past medical history significant for a remote history of Staph aureus bacteremia. Apparently, she was on antibiotics for a protracted course. At some point during that hospital stay, she ended up requiring a thoracentesis on the right, but no decortication was indicated. She does not remember if that space was infected or not, but the fact that it went away and she do not have any longstanding history there, suggested it may have been volume associated. Either way, she was in her usual state of health until about 2 weeks ago. She started having fevers, chills, cough, and thick yellow sputum production. She went to see her primary care physician who put her on a 10-day course of doxycycline. The fevers improved, and the sputum cleared. That being said, she continued to have persistent cough. She started feeling lousy, and had some low-grade temperatures. She subsequently presented to an Urgent Care Clinic. A chest x-ray confirmed that she started pneumonia. As such, she was admitted for failure of outpatient therapy. She denies any current nausea, vomiting, or diarrhea. She has good appetite. Her biggest complaint at this point is a pleuritic chest discomfort and irritating cough. PAST MEDICAL HISTORY: 1. History of Staph bacteremia. 2. History of morbid obesity. PAST SURGICAL HISTORY: 1. Gastric sleeve surgery. 2. section x1. 3. Thoracentesis, remote. ALLERGIES: NO KNOWN DRUG ALLERGIES. MEDICATIONS: List of her inpatient medications was reviewed. I have added some brief course of steroids. FAMILY HISTORY: Noncontributory. SOCIAL HISTORY: Negative for alcohol, tobacco, or illicit drug use. She is a lifelong nonsmoker. She has no exposure to chemicals, dust, asbestos, or tuberculosis. REVIEW OF SYSTEMS: General, head, ears, eyes, nose, throat, cardiovascular, respiratory, GI, , musculoskeletal, neurologic, and skin are negative except as mentioned in the HPI. PHYSICAL EXAMINATION: VITAL SIGNS: Afebrile, pulse 94, blood pressure 108/72, respirations 18, saturation 96% on room air. GENERAL: The patient is awake and alert, in no apparent distress. LUNGS: Very good air entry. There is some E to A egophony present, particularly on the left. There are infiltrates in bilateral lung edwards. Air bronchograms are noted. There is a small pleural effusion on the left. It seems to be layering at this point. LABORATORY DATA: WBC 9.5, hemoglobin 10.2, platelets 291,000. The differential is normal on presentation. Basic metabolic profile, and liver function studies are otherwise unremarkable. ASSESSMENT: 1. Community-acquired pneumonia. 2. Pleuritic chest discomfort. 3. Pleural effusion on the left, small and layering. DISCUSSION AND PLAN: I will repeat a chest x-ray tomorrow morning. Provided that she does not have a large effusion developed, she will likely be stable for transition home on oral antibiotics. This can be a 7-day course of antibiotics. I will give her a course of steroids. This may help with her pleuritic chest discomfort. I will have her follow up with me in the outpatient setting in 4 weeks with a repeat chest x-ray. If the infiltrate persists, a CT scan will be performed followed by a likely bronchoscopy. That being said, at this point, her pneumonia has not had enough time to resolve radiographically. Disposition will be based on what the chest x-ray tomorrow looks like. 70 minutes have been devoted to this patient in various activities. I personally reviewed all imaging studies and laboratory data noted within this document. For fifty percent of this time, I was interacting with the patient at the bedside or coordinating care with the care team. For the remainder of the time I was immediately available to the patient in the hospital unit. Job ID: [id number] [facility]
[2018-12-18] MEDS: Albuterol Sulfate 2.5 mg/3 ml Neb NEB SCH ×3 (00:29→13:30)
[2018-12-18] MEDS: cefTRIAXone\\ROCEPHIN 1 GM in Sodium Chloride 0.9% 100 ML IVPB SCH (01:46)
[2018-12-18] MEDS: Azithromycin 500 MG in Sodium Chloride 0.9% 250 ML 250 ML IVPB SCH (01:51)
[2018-12-18] MEDS ORDERED: predniSONE 20 MG TAB PO SCH (08:00)
--- NOTE | 2018-12-18 08:26 | RAD ---
EXAM: XR Chest Pa Lat STANDARD PROVIDED CLINICAL HISTORY: Follow-up infiltrate and left pleural effusion. COMPARISON: 12/15/2018 FINDINGS: Bibasilar pleural and parenchymal lung changes are again seen, again larger in size on the left. Rece nt CT examination did demonstrated consolidation in the lower lobes bilaterally with associated tiny pleural effusions. Findings may be related to bibasilar pneumonia, and atypical pneumonia is a p ossibility. Parenchymal changes at the right lung base may be minimally improved but are unchanged at the left lung base. Cardiac silhouette and pulmonary vasculature are within normal limits. No other interval change. IMPRESSION: Bibasilar pleural and parenchymal lung changes much larger in size on the left likely reflective of a basilar pneumonia. Atypical pneumonia cannot be entirely excluded. Associated tiny bilateral pleural effusions were present on recent CT scan exam.
[2018-12-18] MEDS: Enoxaparin Sodium 40 MG/0.4 ML SYRINGE SC SCH (08:56)
[2018-12-18] MEDS: Ibuprofen 200 MG TAB PO SCH ×2 (08:57→14:48)
[2018-12-18] MEDS: Famotidine 20 MG TAB PO SCH (08:58)
[2018-12-18 09:47] LABS: #Basophils 0.1 thou/uL (0.0-0.2); #Eosinphils 0.1 thou/uL (0.0-0.7); #Lymphocytes 1.7 thou/uL (1.20-3.40); #Monocytes 1.2 thou/uL (0.11-0.59); #Neutrophils 7.3 thou/uL (1.40-6.50); %Basophils 0.5 % (0.0-1.0); %Eosinophils 0.8 % (0.0-10.0); %Lymphocytes 16.2 % (21.0-51.0); %Monocytes 11.5 % (0.0-10.0); Hemoglobin 10.8 g/dL (12.0-16.0); Mean Corpuscular Hemoglobin 26.1 pg (27.0-31.0); Mean Corpuscular Volume 84.2 fL (78.0-98.0); Mean Platelet Volume 9.5 fL (7.4-10.4); Platelet Count 311 thou/uL (130-400); Red Blood Cell (RBC) Count 4.14 mill/uL (4.20-5.40); White Blood Cell (WBC) Count 10.3 thou/uL (4.8-10.8)
[2018-12-18 10:09] LABS: Anion Gap 11 mmol/L (10-20); BUN (Urea Nitrogen) 8 mg/dL (7.0-18.7); Calc. Creatinine Clearance 166 mL/min (70-130); Calcium 8.8 mg/dL (7.8-10.44); Carbon Dioxide 25 mmol/L (22-29); Chloride 106 mmol/L (98-107); Estimated GFR-MDRD Greater than 90; Glucose 104 mg/dL (70-105); Potassium 3.2 mmol/L (3.5-5.1); Sodium 139 mmol/L (136-145)
[2018-12-18 10:30] LABS: HIV (1/2) Antibody/Antigen Non-Reactive (NonReactive); HIV 1/2 INDEX 0.06 S/CO (<1.00)
--- NOTE | 2018-12-18 13:29 | PDOC.HOSPP ---
- Subjective Subjective: cough and pleuritic chest pain has mostly resolved feels better, is amb in room - Objective Vital Signs & Weight: Vital Signs (12 hours) Temp Pulse Resp BP Pulse Ox 12/18/18 11:23 97.8 F 86 18 90/57 L 96 12/18/18 07:34 97.5 F L 91 20 99/62 96 12/18/18 06:47 80 16 96 Weight Weight 171 lb 14.4 oz I&O: 12/17/18 12/18/18 12/19/18 06:59 06:59 06:59 Intake Total 600 Balance 600 Result Diagrams: 12/18/18 09:38 12/18/18 09:38 ROS - Review of Systems All systems: All other ROS were reviewed and found negative. - Medication Medications: Active Medications Generic Name Dose Route Start Last Admin Trade Name Freq PRN Reason Stop Dose Admin Albuterol Sulfate 2.5 mg 12/16/18 19:00 12/18/18 06:47 Ventolin NEB 2.5 mg [id number] CRISTOBAL Administration Enoxaparin Sodium 40 mg 12/17/18 09:00 12/18/18 08:56 Lovenox SC 40 mg 0900 CRISTOBAL Administration Famotidine 20 mg 12/16/18 21:00 12/18/18 08:58 Pepcid PO Not Given BID CRISTOBAL Guaifenesin/Dextromethorphan 15 ml 12/16/18 16:21 12/17/18 05:09 Robitussin Dm PO 15 ml Q4H PRN Administration Cough Azithromycin 500 mg/ Sodium 250 mls @ 250 mls/hr 12/17/18 02:00 12/18/18 01: 51 Chloride IVPB 250 mls 0200 CRISTOBAL Administration Ceftriaxone Sodium 1 gm/ 100 mls @ 200 mls/hr 12/17/18 01:00 12/18/18 01:46 Sodium Chloride IVPB 100 mls 0100 CRISTOBAL Administration Ibuprofen 200 mg 12/16/18 21:00 12/18/18 08:57 Motrin PO 200 mg TID CRISTOBAL Administration Prednisone 40 mg 12/18/18 08:00 12/18/18 08:57 Prednisone PO 12/22/18 08:01 40 mg QAM-WM CRISTOBAL Administration Senna/Docusate Sodium 2 tab 12/16/18 16:21 07/23/19 20:39 Senokot S PO 2 tab BID PRN Administration Constipation Tramadol HCl 50 mg 12/17/18 02:38 12/17/18 07:01 Ultram PO 50 mg Q4H PRN Administration Moderate Pain (4-6) - Exam NAD, awake alert Eye: PERRL, anicteric sclera ENT: no oropharyngeal lesions, moist mucosa Neck: supple, no JVD Heart: RRR, no murmur Respiratory: no wheezes, no rales Gastrointestinal: soft, non-tender, normal bowel sounds Extremities: no cyanosis, no clubbing Skin: no lesions, no rashes Neurological: CN's grossly intact, no focal deficits Musculoskeletal: normal tone, no muscle wasting Psychiatric: normal affect, A&O x 3 Hosp A/P (1) PNA (pneumonia) Code(s): J18.9 - PNEUMONIA, UNSPECIFIED ORGANISM Status: Acute Qualifiers: Pneumonia type: due to unspecified organism Laterality: left Lung location: lower lobe of lung Qualified Code(s): J18.1 - Lobar pneumonia, unspecified organism (2) Pleural effusion, left Code(s): J90 - PLEURAL EFFUSION, NOT ELSEWHERE CLASSIFIED Status: Acute (3) H/O bariatric surgery Code(s): Z98.84 - BARIATRIC SURGERY STATUS Status: Chronic (4) Anemia Code(s): D64.9 - ANEMIA, UNSPECIFIED Status: Chronic - Plan is on levaquin, steroids, nebs hemostable Hiv is -ve, urine for legionella and strep is pending dc plan per pulm adv Is ambulating and eating well
[2018-12-18] MEDS ORDERED: Potassium Chloride 20 MEQ TAB PO SCH (15:15)
--- NOTE | 2018-12-18 15:34 | PRG ---
DATE OF SERVICE: 12/18/2018 SERVICE: Pulmonary Medicine. INTERVAL HISTORY: The patient is doing really well from respiratory standpoint. She indicates her pleural chest discomfort is completely resolved. No complaints of nausea, vomiting, or diarrhea. Otherwise, there are no significant overnight events. PHYSICAL EXAMINATION: VITAL SIGNS: Afebrile, pulse 86, blood pressure 90/57, respirations 18, and saturation 96% on room air. GENERAL: The patient is awake and alert, in no apparent distress. LUNGS: Very good air entry. No prolonged expiratory phase or wheezing is present. HEART: Normal rate, regular. ABDOMEN: Soft, nontender, nondistended, bowel sounds are positive. MUSCULOSKELETAL: No cyanosis or clubbing. No pitting in the bilateral lower extremities. NEUROLOGIC: Grossly nonfocal. LABORATORY DATA: WBC 10.3, hemoglobin 10.8, platelets 311,000. Basic metabolic profile is unremarkable except for potassium of 3.2. HIV 1 and 2 are nonreactive. Respiratory virus PCR, blood cultures x2 are unremarkable. IMAGING: Chest x-ray demonstrates stable left lower lobe infiltrate. There is also some small right infiltrate. There is a small effusion, but it does not look like there has been a massive expansion compared to the recent CT of the chest. ASSESSMENT: 1. Community-acquired pneumonia, status post outpatient antibiotic course. 2. Pleuritic chest discomfort. 3. Hypokalemia. 4. Pleural effusion on the left, small layering. DISCUSSION AND PLAN: It does not look like the pleural effusion got significantly larger. As such, my plan would be for the patient to be discharged home today. We will repeat a chest x-ray in 4 weeks in the outpatient setting. She should go out on a 5-day course of Omnicef, azithromycin, and prednisone. If she has any issues between now and four weeks, I have directed her to present to clinic or return to the emergency department sooner. From my perspective, she is stable for transition home today. Job ID: [id number]
[2018-12-18 17:37] VITALS: BP 104/70; TEMP 98.1
[2018-12-18 18:23] LABS: Legionella Urinary Ag Negative (Negative)
[2018-12-18 18:24] LABS: Strep pneumo Urine Ag NEGATIVE (NEGATIVE)
--- NOTE | 2018-12-19 11:53 | DIS ---
DATE OF ADMISSION: 12/16/2018 DATE OF DISCHARGE: 12/18/2018 DISCHARGE DISPOSITION: Home. PRIMARY DISCHARGE DIAGNOSES: Pneumonia, likely community-acquired, left pleural effusion, history of bariatric surgery, chronic anemia. PROCEDURES DONE DURING HOSPITALIZATION: CT chest done showed bilateral lower lobe infiltrate. Left pleural effusion is seen. Blood cultures x2, no growth. Respiratory virus panel PCR was negative. H and H 10 and 34, platelet count 311, white count of 10. BUN 8 and creatinine 0.6. HIV 1 and 2 nonreactive. Urine for Legionella pneumophila antigen negative. Urine for strep pneumo antigen negative. INPATIENT CONSULT: Dr. Faulkner for Pulmonology. DISCHARGE PLAN: The patient is to follow up with Dr. Faulkner in 4 weeks. She needs follow up with her primary care physician in 1 week. DISCHARGE MEDICATIONS: 1. Azithromycin 250 mg p.o. daily for 5 days. 2. Omnicef 300 mg p.o. twice daily for 5 days. 3. Prednisone 40 mg p.o. daily for 5 days and to discontinue. 4. Albuterol inhaler q.6 hourly p.r.n. ALLERGIES: NO KNOWN DRUG ALLERGIES. BRIEF COURSE DURING HOSPITALIZATION: The patient initially came to ER with complaints of cough, shortness of breath, and fever. She had taken doxycycline for pneumonia, which was diagnosed 10 days prior to arrival here. Despite this, the patient had ongoing symptoms. She was admitted to medical floor. She has had a CT chest done, which shows left pleural effusion with consolidation. She has had consultation with Dr. Faulkner for Pulmonology. She was placed on IV antibiotics and has been transitioned to oral Zithromax and Omnicef for a period of 5 days. The patient had pleuritic chest pain, which has resolved with the patient being placed on prednisone. She needs to follow up with Dr. Faulkner in 4 weeks. If the patient were to have recurrent fever or worsening symptoms of shortness of breath, cough, or expectoration, the patient is advised to come to the nearest emergency room or call Dr. Faulkner's office for further help. Please note, I have seen and examined the patient on the day of discharge. Job ID: [id number]
== END 2018-12-18 17:35 | disposition home or self-care (01) | DRG 194 ==
LOC: ERS 21:49 → T4-B 12-16 01:13
PROVIDERS: ADMIT Hospitalist; ATTEND Hospitalist
DX: J18.1 Lobar pneumonia, unspecified organism (principal); J90 Pleural effusion, not elsewhere classified; D64.9 Anemia, unspecified; E87.6 Hypokalemia; Z98.84 Bariatric surgery status
CPT/HCPCS: 36415; 71046; 71250; 80048; 80053; 83605; 85025; 87040; 87070; 87389; 87633; 87899; 94640; 94760; 96361; 96365; 96367; J0456; J0696; J1650; J3490; J7050; J7512; J7611

== ENCOUNTER 2019-01-08 10:55 | Outpatient (CLI) | payer OTHER ==
--- NOTE | 2019-01-08 11:16 | RAD ---
Exam: CHEST TWO VIEWS: HISTORY: Dyspnea Comparison 12/29/2018 FINDINGS: Persistent left lower lobe consolidation as well as persistent opacification of the right lung base. There does appear to be a component of nodularity with regards to the right lung base opacification. Normal cardiac silhouette. No pneumothorax. IMPRESSION: Persistent bilateral lower lobe opacities, left greater than right. Continued surveillance is recomme nded. Correlation made with CT from 12/17/2018 does suggest a component of improvement. Transcribed Date/Time: 01/08/2019 11:48 AM
== END 2019-01-08 10:56 | disposition home or self-care (01) ==
LOC: RAD 10:55
PROVIDERS: ATTEND Internal Medicine
DX: R06.00 Dyspnea, unspecified (principal); R91.8 Other nonspecific abnormal finding of lung field
CPT/HCPCS: 71046

== ENCOUNTER 2019-02-05 10:41 | Outpatient (CLI) | payer OTHER ==
--- NOTE | 2019-02-05 11:00 | RAD ---
EXAM: XR Chest Pa Lat @ POB PROVIDED CLINICAL HISTORY: Dyspnea COMPARISON: 01/08/2019 FINDINGS: Cardiac silhouette and pulmonary vasculature are within normal limits. The linear and patchy parenchy mal densities at the right lung base are stable compared to prior exam. The area of consolidation in the left lower lobe has mildly improved, but linear and patchy parenchymal densities do persist. F indings are likely related to improving left lower lobe pneumonia. There is a tiny right pleural effusion present. No other interval change. IMPRESSION: 1. Findings likely related to bilateral lower lobe pneumonia greater on the left. Atypical pneumonia is a possibility. There has been improvement in pneumonia in the left lower lobe. However, continued follow-up to complete resolution is recommended. 2. Tiny right pleural effusion.
== END 2019-02-05 10:42 | disposition home or self-care (01) ==
LOC: RAD 10:41
PROVIDERS: ATTEND Internal Medicine
DX: R06.00 Dyspnea, unspecified (principal); J18.9 Pneumonia, unspecified organism; J90 Pleural effusion, not elsewhere classified
CPT/HCPCS: 71046

== ENCOUNTER 2019-04-08 09:18 | Outpatient (CLI) | payer OTHER ==
--- NOTE | 2019-04-08 09:56 | RAD ---
XR Chest Pa Lat @ POB HISTORY: Dyspnea COMPARISON: 02/05/2019 FINDINGS: The heart size is normal. The lungs are well expanded without focal areas of consolidation, pneumothorax or large pleural effusions. Infiltrates in the lower lung edwards have improved without complete resolution since the last exam. IMPRESSION: Interval improvement without complete resolution of infiltrates in the lower lung zones s emilee 02/05/2019.
== END 2019-04-08 09:19 | disposition home or self-care (01) ==
LOC: RAD 09:18
PROVIDERS: ATTEND Internal Medicine
DX: R06.00 Dyspnea, unspecified (principal); R91.8 Other nonspecific abnormal finding of lung field
CPT/HCPCS: 71046

== ENCOUNTER 2021-10-22 22:30 | Emergency (ER) | payer OTHER ==
[2021-10-22 23:08] LABS: #Basophils 0.1 thou/uL (0.0-0.2); #Lymphocytes 2.6 thou/uL (1.20-3.40); #Monocytes 0.6 thou/uL (0.11-0.59); #Neutrophils 7.2 thou/uL (1.40-6.50); %Basophils 0.6 % (0.0-1.0); %Eosinophils 0.2 % (0.0-10.0); %Lymphocytes 24.6 % (21.0-51.0); %Monocytes 5.9 % (0.0-10.0); %Neutrophils 68.8 % (42.0-75.0); Hemoglobin 9.5 g/dL (12.0-16.0); Mean Corpuscular Hemoglobin 24.1 pg (27.0-31.0); Mean Corpuscular Volume 75.3 fL (78.0-98.0); Mean Platelet Volume 10.2 fL (7.4-10.4); Platelet Count 250 thou/uL (130-400); RBC Distribution Width 15.2 % (11.5-14.5); Red Blood Cell (RBC) Count 3.93 mill/uL (4.20-5.40); White Blood Cell (WBC) Count 10.4 thou/uL (4.8-10.8)
[2021-10-22 23:13] LABS: Bilirubin Negative (Negative); Blood, Urine Negative (Negative); Clarity Turbid (Clear); Glucose, Urine (Dipstick) Normal (Negative); Ketone, Urine Trace mg/dL (Negative); Leukocyte 75 Leu/uL (Negative); Nitrite 2+ (Negative); Protein, Urine (Dipstick) 20 mg/dL (Neg-Trace); RBC/HPF 0-3 HPF (0-3); pH, Urine 5.5 (5.0-9.0)
[2021-10-22 23:19] LABS: Bacteria/HPF 4+ HPF (None Seen)
[2021-10-22 23:28] LABS: ALT (SGPT) 10 U/L (8-55); AST (SGOT) 11 U/L (5-34); Albumin 3.6 g/dL (3.5-5.0); Alkaline Phosphatase 56 U/L (40-110); Anion Gap 11 mmol/L (10-20); BUN (Urea Nitrogen) 6 mg/dL (7.0-18.7); Bilirubin, Total 0.7 mg/dL (0.2-1.2); Calc. Creatinine Clearance 0 mL/min (70-130); Calcium 8.7 mg/dL (7.8-10.44); Carbon Dioxide 21 mmol/L (22-29); Chloride 107 mmol/L (98-107); Globulin 3.8 g/dL (2.4-3.5); Glucose 108 mg/dL (70-105); Potassium 3.4 mmol/L (3.5-5.1); Protein, Total 7.4 g/dL (6.0-8.3); Sodium 136 mmol/L (136-145)
== END 2021-10-23 01:36 | disposition home or self-care (01) ==
LOC: ERS 22:30
DX: O23.42 Unspecified infection of urinary tract in pregnancy, second trimester (principal); N39.0 Urinary tract infection, site not specified; O99.012 Anemia complicating pregnancy, second trimester; Z3A.21 21 weeks gestation of pregnancy; Z79.899 Other long term (current) drug therapy
CPT/HCPCS: 36415; 76815; 80053; 81003; 81015; 84702; 85025; 87077; 87086; 87186